=== PATIENT | female | born 1985 | race Caucasian/White ===

== ENCOUNTER 2018-07-17 08:28 | Emergency (ER) | payer BC, OTHER ==
[~2018-07-17] VITALS: Wt 65.4 kg
[~2018-07-17 08:28] MED LIST: ACET-2158 PO; NITR100C7 PO
[2018-07-17 08:32] VITALS: BP 172/98; PULSE 98; RESP 16
[2018-07-17] MEDS ORDERED: CEPH-443 PO (08:50)
[2018-07-17] MEDS ORDERED: SULF1TAB31 PO (08:50)
--- NOTE | 2018-07-17 09:25 | ERD ---
ER Documentation Chief Complaint Chief Complaint RIGHT THIGH SWELLING/REDNESS/PAIN X2 DAYS HPI 33-year-old female planes of pain and redness on the right lateral thigh for the past 2 days. Patient states that about a few days prior she hit her thigh against a bed which caused some bruising but that has been clearing up. Patient states the pain is moderate in severity. She denies any fevers. Denies any itchiness ROS All systems reviewed and are negative except as per history of present illness. Medications Home Meds Active Scripts Sulfamethoxazole/Trimethoprim* (Bactrim Ds* Tablet) 1 Each Tablet, 1 TAB PO BID for 7 Days, TAB Prov:BEN VÁZQUEZ PA-C 07/17/18 Cephalexin* (Keflex*) 500 Mg Capsule, 500 MG PO QID for 7 Days, CAP Prov:BEN VÁZQUEZ PA-C 07/17/18 Acetaminophen (TYLENOL 325 MG TAB) 325 Mg Tab, 650 MG PO Q6H PRN for PAIN LEVEL 1-3 OR FEVER, #14 TAB Prov:ANGIE CHANDRA MD 08/29/14 Reported Medications Nitrofurantoin Macrocrystal* (Nitrofurantoin Macrocrystal*) 100 Mg Capsule, 100 MG PO BID, CAP 08/29/14 Allergies Allergies: Coded Allergies: Penicillins (Verified Allergy, Severe, HIVES, 08/29/14) ibuprofen (Verified Allergy, Severe, HIVES, 08/29/14) PMhx/Soc History of Surgery: Yes (CS X2 ) Anesthesia Reaction: No Hx Neurological Disorder: No Hx Respiratory Disorders: Yes (ASTHMA) Hx Cardiac Disorders: No Hx Psychiatric Problems: Yes (ANXIETY) Hx Miscellaneous Medical Probl: No Hx Alcohol Use: Yes (OCCASIONAL) Hx Substance Use: Yes Hx Tobacco Use: No Smoking Status: Current every day smoker Physical Exam Vitals Vital Signs Date Temp Pulse Resp B/P (MAP) Pulse Ox O2 O2 Flow FiO2 Time Delivery Rate 07/17/18 97.5 98 16 172/98 99 08:32 (122) Physical Exam Const: No acute distress Head: Atraumatic Eyes: Normal Conjunctiva ENT: Normal External Ears, Nose and Mouth. Neck: Full range of motion. No meningismus. Resp: Clear to auscultation bilaterally Cardio: Regular rate and rhythm, no murmurs Abd: Soft, non tender, non distended. Normal bowel sounds Skin: ~5cm patch of erythema, warmth and induration Back: No midline or flank tenderness Ext: No cyanosis, or edema Neur: Awake and alert Psych: Normal Mood and Affect Procedures/MDM 33-year-old female presents emergency department with sepsis was present with a cellulitis of the right lateral leg. It is small and appropriate for outpatient antibiotics. No signs of lymphangitis. Patient is afebrile and nontoxic. Patient is instructed to take back Keflex and Bactrim, discussed with her to follow-up with her primary care physician in 2 days. Discussed return to emergency room for any worsening symptoms. She understands agrees this plan. Departure Diagnosis: Primary Impression: Cellulitis Condition: Stable Patient Instructions: Cellulitis Additional Instructions: FOLLOW UP WITH YOUR PRIMARY CARE PHYSICIAN TOMORROW.Return to this facility if you are not improving as expected. Take all medicines as directed. Return to this facility if you are not improving as expected. BEN VÁZQUEZ PA-C Jul 17, 2018 09:25
== END 2018-07-17 09:15 | disposition home or self-care (01) ==
LOC: FTE 08:28
DX: L03.115 Cellulitis of right lower limb (principal); J45.909 Unspecified asthma, uncomplicated; F17.210 Nicotine dependence, cigarettes, uncomplicated
CPT/HCPCS: 99283